=== PATIENT | male | born 1955 | race Caucasian/White ===

== ENCOUNTER 2017-11-05 16:35 | Inpatient (IN) | payer MEDICARE ==
[~2017-11-05] VITALS: Ht 180.3 cm; Wt 88.9 kg
[2017-11-05 16:45] VITALS: BP 120/80; PULSE 94; RESP 18; TEMP 98.5; O2SAT 99
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
[2017-11-05 20:18] VITALS: BP 118/65; PULSE 93; RESP 18; O2SAT 98
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
[2017-11-05] MEDS ORDERED: ONDANSETRON HCL 4 MG/2 ML VIAL IV PUSH ONE (20:30)
[2017-11-05] MEDS ORDERED: MORPHINE SULFATE 4 MG/ML INJ IV PUSH ONE (20:30)
[2017-11-05 21:28] LABS: BASOPHIL % 0.1 % (0.0-2.0); HEMATOCRIT 37.5 % (39.0-51.0); HEMOGLOBIN 12.9 GM/DL (13.0-17.0); LYMPH % 7.9 % (9.0-44.0); LYMPHOCYTE # 0.9 TH/MM3 (1.0-4.8); MEAN CELL VOLUME 92.6 FL (80.0-100.0); MEAN CORPUSCULAR HEMOGLOBIN 31.9 PG (27.0-34.0); MEAN CORPUSCULAR HGB CONC 34.5 % (32.0-36.0); MEAN PLATELET VOLUME 7.8 FL (7.0-11.0); MONOCYTE # 0.6 TH/MM3 (0-0.9); PLATELET COUNT 198 TH/MM3 (150-450); RED BLOOD COUNT 4.04 MIL/MM3 (4.50-5.90); RED CELL DISTRIBUTION WIDTH 13.1 % (11.6-17.2); WHITE BLOOD COUNT 11.5 TH/MM3 (4.0-11.0)
[2017-11-05 21:40] LABS: INTERNATIONAL NORMALIZED RATIO 1.1 RATIO; PROTHROMBIN TIME - PATIENT 10.7 SEC (9.8-11.6)
[2017-11-05 21:44] LABS: BICARBONATE 25.9 MEQ/L (21.0-32.0); CALCIUM 9.3 MG/DL (8.5-10.1); CREATININE 0.82 MG/DL (0.60-1.30)
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
[2017-11-05] MEDS ORDERED: LACTULOSE SYRUP 20 GM/30 ML CUP PO PRN (22:45)
[2017-11-05] MEDS ORDERED: SODIUM CHLORIDE 0.9% FLUSH 10 ML FLUSH IV FLUSH PRN (22:45)
[2017-11-05] MEDS ORDERED: SENNOSIDES 8.6 MG TAB PO PRN (22:45)
[2017-11-05] MEDS ORDERED: MAGNESIUM HYDROXIDE SUSP 30 ML CUP PO PRN (22:45)
[2017-11-05] MEDS ORDERED: ACETAMINOPHEN 325 MG TAB PO PRN (22:45)
[2017-11-05] MEDS ORDERED: BISACODYL 10 MG SUPP RECTAL PRN (22:45)
[2017-11-05] MEDS ORDERED: ONDANSETRON HCL 4 MG/2 ML VIAL IVP PRN (22:45)
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
[2017-11-06] VITALS (8 sets, daily range): BP systolic 130–156; BP diastolic 63–80; PULSE 75–100; RESP 16–21; TEMP 96.6–99; O2SAT 96–100
[2017-11-06] MEDS: SODIUM CHLOR 0.9% 1000 ML INJ 1,000 ML IV SCH ×3 (00:31→11:50)
[2017-11-06] MEDS: MORPHINE SULFATE 2 MG/ML INJ IV PUSH PRN ×4 (00:32→10:54)
[2017-11-06] MEDS ORDERED: CHLORHEXIDINE GLUCONATE 2 % 1 PACK (2 CLOTHS) TOPICAL PRN (01:45)
[2017-11-06] MEDS ORDERED: SODIUM CHLORID 0.9% 500 ML IV PRN (01:45)
[2017-11-06] MEDS ORDERED: POVIDONE IODINE 5% (ANTISEPSIS KIT) 4 APPLICATIONS EACH NARE PRN (01:45)
[2017-11-06] MEDS: LACTATED RINGER'S 1000 ML IV PRN ×2 (04:58→14:09)
[2017-11-06 07:35] LABS: AUTOMATED NEUTROPHIL # 7.2 TH/MM3 (1.8-7.7); BASOPHIL % 0.2 % (0.0-2.0); HEMATOCRIT 34.5 % (39.0-51.0); HEMOGLOBIN 12.2 GM/DL (13.0-17.0); LYMPH % 13.4 % (9.0-44.0); LYMPHOCYTE # 1.2 TH/MM3 (1.0-4.8); MEAN CELL VOLUME 92.3 FL (80.0-100.0); MEAN CORPUSCULAR HEMOGLOBIN 32.6 PG (27.0-34.0); MEAN CORPUSCULAR HGB CONC 35.3 % (32.0-36.0); MEAN PLATELET VOLUME 7.4 FL (7.0-11.0); MONOCYTE # 0.8 TH/MM3 (0-0.9); NEUT % 77.4 % (16.0-70.0); PLATELET COUNT 163 TH/MM3 (150-450); RED BLOOD COUNT 3.73 MIL/MM3 (4.50-5.90); RED CELL DISTRIBUTION WIDTH 13.2 % (11.6-17.2); WHITE BLOOD COUNT 9.3 TH/MM3 (4.0-11.0)
[2017-11-06] MEDS: DOCUSATE SODIUM 50 MG/SENNA 8.6 MG TAB PO SCH ×2 (08:02→22:18)
[2017-11-06 08:05] LABS: ALBUMIN 3.5 GM/DL (3.4-5.0); ALT (GPT) 20 U/L (12-78); AST (GOT) 15 U/L (15-37); BICARBONATE 27.8 MEQ/L (21.0-32.0); BLOOD UREA NITROGEN 19 MG/DL (7-18); CALCIUM 8.7 MG/DL (8.5-10.1); CHLORIDE 107 MEQ/L (98-107); CREATININE 0.86 MG/DL (0.60-1.30); GLOMERULAR FILTRATION RATE 90 ML/MIN (>89); GLUCOSE,RANDOM 135 MG/DL (74-106); SODIUM (NA) 141 MEQ/L (136-145)
[2017-11-06 08:07] LABS: ALKALINE PHOSPHATASE 72 U/L (45-117); TOTAL BILIRUBIN ADULT 1.9 MG/DL (0.2-1.0); TOTAL PROTEIN 6.7 GM/DL (6.4-8.2)
[2017-11-06] MEDS ORDERED: SODIUM CHLORIDE 0.9% FLUSH 10 ML FLUSH IV FLUSH SCH (09:00)
--- NOTE | 2017-11-06 10:04 | EKG ---
Date Performed: 11/06/2017 Time Performed: 03:55:57 PTAGE: 61 years EKG: Sinus rhythm NORMAL ECG NO PREVIOUS TRACING DOCTOR: Jesus Gandara Interpretating Date/Time 11/06/2017 10:02:17
[2017-11-06] MEDS: ACETAMINOPHEN/HYDROcodone 325 MG/5 MG TAB PO PRN ×2 (11:55→18:42)
[2017-11-06] MEDS ORDERED: ONDANSETRON HCL 4 MG/2 ML VIAL IV ONE (12:00)
[2017-11-06] MEDS ORDERED: DEXAMETHASONE SOD PHOS 4 MG/ML VIAL IV ONE (12:00)
[2017-11-06] MEDS ORDERED: METOPROLOL TARTRATE 5 MG/5 ML VIAL IV ONE (12:00)
[2017-11-06] MEDS ORDERED: ceFAZolin INJ 1,000 MG VIAL IV ONE ×2 (12:00→15:09)
[2017-11-06] MEDS ORDERED: LIDOCAINE HCL 1% PF 5 ML SYRINGE OTHER ONE (12:00)
[2017-11-06] MEDS ORDERED: PROPOFOL 200 MG/20 ML AMP IV ONE (12:00)
[2017-11-06] MEDS ORDERED: PHENYLEPH/NS 1000 MCG/10 ML SYR IV ONE (12:00)
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
[2017-11-06] MEDS ORDERED: *morphine SULFATE 4 MG/ML PERIprocedure ONLY ONE (16:11)
[2017-11-06] MEDS ORDERED: DO NOT ADM ANY ANTICOAGULANT DRUGS PRN (16:15)
[2017-11-06] MEDS ORDERED: Post-op Orders (for Pharmacy) XX ONE (16:30)
[2017-11-06] MEDS ORDERED: SODIUM CHLORIDE 0.9% FLUSH 10 ML FLUSH IV FLUSH PRN (16:30)
--- NOTE | 2017-11-06 17:00 | RADRPT ---
EXAM DATE/TIME: 11/06/2017 14:21 [facility] COMPARISON: No previous studies available for comparison. INDICATIONS : External fixator application in operating room. MEDICAL HISTORY : None. SURGICAL HISTORY : None. ENCOUNTER: Subsequent ACUITY: 2 days PAIN SCORE: Non-responsive. LOCATION: Left lateral FINDINGS: External fixator placed across comminuted proximal tibial fracture. Also proximal fibular fracture. L ateral tibial plateau remains mildly depressed. CONCLUSION: 1. External fixation as above. Nadeem Cortes MD on November 06, 2017 at 16:58 Board Certified Radiologist. This report was verified electronically.
[2017-11-06] MEDS: SODIUM CHLORIDE 0.9% FLUSH 10 ML FLUSH IV FLUSH SCH (21:00)
[2017-11-07] VITALS: BP 128/70; PULSE 83; RESP 20; TEMP 97.1; O2SAT 100
[2017-11-07] MEDS: ACETAMINOPHEN/HYDROcodone 325 MG/5 MG TAB PO PRN ×4 (02:37→17:33)
[2017-11-07 04:00] VITALS: BP 135/75; PULSE 85; RESP 20; TEMP 99.4; O2SAT 100
[2017-11-07] MEDS: ENOXAPARIN SODIUM 40 MG/0.4 ML SYRINGE SQ SCH (04:11)
[2017-11-07] MEDS: SODIUM CHLOR 0.9% 1000 ML INJ 1,000 ML IV SCH (04:31)
--- NOTE | 2017-11-07 07:03 | PD.ORT.PN ---
Subjective Subjective Remarks Patient resting comfortable this morning. He states his pain is well- controlled. Has no numbness or tingling. Objective Vitals Vital Signs Date Time Temp Pulse Resp B/P (MAP) Pulse Ox O2 Delivery O2 Flow Rate FiO2 11/07/17 04:00 99.4 85 20 135/75 (95) 100 11/07/17 00:00 97.1 83 20 128/70 (89) 100 11/06/17 22:11 99 11/06/17 20:00 98.5 85 18 141/72 (95) 100 11/06/17 17:37 Nasal Cannula 3.00 11/06/17 17:25 Nasal Cannula 3.00 11/06/17 17:05 99.0 75 16 152/80 (104) 98 11/06/17 16:24 98.6 87 15 150/84 (106) 95 Nasal Cannula 3 11/06/17 16:15 85 15 150/79 (102) 95 Nasal Cannula 3 11/06/17 16:00 85 15 149/72 (97) 100 Nasal Cannula 3 11/06/17 15:39 98.2 114 15 160/82 (108) 100 Nasal Cannula 3 11/06/17 12:00 98.8 77 18 156/78 (104) 100 11/06/17 08:00 99.0 81 18 140/75 (96) 98 I/O 11/06/17 11/06/17 11/06/17 11/07/17 11/07/17 11/07/17 07:00 15:00 23:00 07:00 15:00 23:00 Intake Total 320 ml 699 ml 900 ml 1096 ml Output Total 0 ml 5 ml Balance 320 ml 699 ml 895 ml 1096 ml Intake Oral 0 ml IV Total 320 ml 699 ml 100 ml 1096 ml Other 800 ml Output Urine Total 0 ml 0 ml Estimated Blood Loss 5 ml # Voids 3 # Bowel Movements 0 Result Diagram: 11/06/17 0657 11/06/1757 Objective Remarks Awake, alert, no acute distress Left lower extremity: External fixator in place with clean dressings. Positive dorsiflexion, plantar flexion, EHL, FHL. Sensation intact. Patient allows full passive range of motion of ankle and foot without any discomfort. Significant edema and swelling about the proximal small tibia and knee. Palpable DP Assessment & Plan Assessment and Plan 61-year-old gentleman with closed left bicondylar tibial plateau fracture, POD# 1 s/p application of external fixator 1. Nonweightbearing left lower extremity in ex fix. Strict elevation and ice to left lower extremity. 2. Plan for definitive fixation in a delayed basis when the soft tissue swelling improves. This will likely be performed by my partner, Dr. Zheng 3. Lovenox for DVT prophylaxis Deyanira Heredia MD Nov 07, 2017 07:03
[2017-11-07 08:03] VITALS: BP 139/70; PULSE 87; RESP 18; TEMP 96.3; O2SAT 100
[2017-11-07] MEDS: DOCUSATE SODIUM 50 MG/SENNA 8.6 MG TAB PO SCH ×2 (08:34→21:16)
[2017-11-07] MEDS: SODIUM CHLORIDE 0.9% FLUSH 10 ML FLUSH IV FLUSH SCH ×2 (09:00→21:16)
[2017-11-07 12:00] VITALS: BP 125/70; PULSE 89; RESP 18; TEMP 97.9; O2SAT 98
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
[2017-11-07 16:00] VITALS: BP 120/67; PULSE 88; RESP 18; TEMP 98.8; O2SAT 99
[2017-11-07 20:00] VITALS: BP 134/66; PULSE 93; RESP 18; TEMP 100.3; O2SAT 95
[2017-11-08 00:08] VITALS: BP 139/71; PULSE 95; RESP 17; TEMP 99.3; O2SAT 95
[2017-11-08] MEDS: SODIUM CHLOR 0.9% 1000 ML INJ 1,000 ML IV SCH ×4 (01:00→21:00)
[2017-11-08] MEDS: MORPHINE SULFATE 2 MG/ML INJ IV PUSH PRN (02:45)
[2017-11-08] MEDS: ACETAMINOPHEN/HYDROcodone 325 MG/5 MG TAB PO PRN ×6 (02:46→22:04)
[2017-11-08] MEDS: ENOXAPARIN SODIUM 40 MG/0.4 ML SYRINGE SQ SCH (03:15)
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
[2017-11-08 07:58] VITALS: BP 137/80; PULSE 95; RESP 18; TEMP 97.6; O2SAT 99
[2017-11-08] MEDS: DOCUSATE SODIUM 50 MG/SENNA 8.6 MG TAB PO SCH ×2 (08:49→22:03)
[2017-11-08] MEDS: SODIUM CHLORIDE 0.9% FLUSH 10 ML FLUSH IV FLUSH SCH ×2 (08:49→22:04)
[2017-11-08 11:44] VITALS: BP 132/69; PULSE 83; RESP 18; TEMP 98.4; O2SAT 100
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
[2017-11-08 12:47] LABS: AUTOMATED NEUTROPHIL # 4.6 TH/MM3 (1.8-7.7); BASOPHIL % 0.4 % (0.0-2.0); EOSINOPHIL # 0.2 TH/MM3 (0-0.4); EOSINOPHIL % 3.3 % (0.0-4.0); HEMATOCRIT 32.2 % (39.0-51.0); HEMOGLOBIN 11.6 GM/DL (13.0-17.0); LYMPH % 22.9 % (9.0-44.0); LYMPHOCYTE # 1.7 TH/MM3 (1.0-4.8); MEAN CELL VOLUME 93.8 FL (80.0-100.0); MEAN CORPUSCULAR HEMOGLOBIN 33.8 PG (27.0-34.0); MEAN PLATELET VOLUME 7.5 FL (7.0-11.0); MONO % 10.5 % (0.0-8.0); MONOCYTE # 0.8 TH/MM3 (0-0.9); NEUT % 62.9 % (16.0-70.0); PLATELET COUNT 133 TH/MM3 (150-450); RED BLOOD COUNT 3.43 MIL/MM3 (4.50-5.90); RED CELL DISTRIBUTION WIDTH 12.9 % (11.6-17.2); WHITE BLOOD COUNT 7.3 TH/MM3 (4.0-11.0)
[2017-11-08 16:00] VITALS: BP 131/72; PULSE 85; RESP 18; TEMP 98.1; O2SAT 98
[2017-11-08 21:33] VITALS: BP 152/80; PULSE 97; RESP 17; TEMP 98.6; O2SAT 97
[2017-11-08 23:55] VITALS: BP 146/78; PULSE 99; RESP 18; TEMP 98.2; O2SAT 97
[2017-11-09] MEDS: MORPHINE SULFATE 2 MG/ML INJ IV PUSH PRN (05:28)
--- NOTE | 2017-11-09 06:38 | PD.ORT.PN ---
Subjective Subjective Remarks s/p exfix left tibial plateau doing well. no changes. reports pain controlled and has been elevating Objective Vitals Vital Signs Date Time Temp Pulse Resp B/P (MAP) Pulse Ox O2 Delivery O2 Flow Rate FiO2 11/08/17 23:55 98.2 99 18 146/78 (100) 97 11/08/17 21:33 98.6 97 17 152/80 (104) 97 11/08/17 16:00 98.1 85 18 131/72 (91) 98 11/08/17 11:44 98.4 83 18 132/69 (90) 100 11/08/17 07:58 97.6 95 18 137/80 (99) 99 I/O 11/08/17 11/08/17 11/08/17 11/09/17 11/09/17 11/09/17 07:00 15:00 23:00 07:00 15:00 23:00 Intake Total 380 ml 720 ml 360 ml Output Total 500 ml Balance -120 ml 720 ml 360 ml Intake Oral 380 ml 720 ml 360 ml Output Urine Total 500 ml # Voids 3 2 # Bowel Movements 0 0 Result Diagram: 11/08/17 1220 11/06/17 0657 Objective Remarks Awake, alert, no acute distress Left lower extremity: External fixator in place with clean dressings. Positive dorsiflexion, plantar flexion, EHL, FHL. Sensation intact. Patient allows full passive range of motion of ankle and foot without any discomfort. Significant edema 3+ and swelling about the proximal small tibia and knee. Palpable DP Assessment & Plan Assessment and Plan 1) left bicondylar tibial plateau fracture, s/p application of external fixator -NWB -elevate -ice -too swollen for surgery today -resume diet -npo after MN -1x dose of lovenox this AM -Toradol 15mg Q6H x 4 doses -plan for surgery again tomorrow Kishore Regalado/First Mary GARZA Nov 09, 2017 06:38
[2017-11-09] MEDS: KETOROLAC TROMETHAMINE 30 MG/ML (IVP) VIAL IV PUSH SCH ×4 (06:45→23:43)
[2017-11-09] MEDS ORDERED: ENOXAPARIN SODIUM 30 MG/0.3 ML SYRINGE SQ ONE (06:45)
[2017-11-09] MEDS: SODIUM CHLOR 0.9% 1000 ML INJ 1,000 ML IV SCH ×2 (07:00→17:00)
[2017-11-09 07:39] LABS: AUTOMATED NEUTROPHIL # 5.5 TH/MM3 (1.8-7.7); BASOPHIL % 0.4 % (0.0-2.0); EOSINOPHIL # 0.2 TH/MM3 (0-0.4); EOSINOPHIL % 2.6 % (0.0-4.0); HEMATOCRIT 35.3 % (39.0-51.0); HEMOGLOBIN 12.4 GM/DL (13.0-17.0); LYMPH % 18.4 % (9.0-44.0); LYMPHOCYTE # 1.4 TH/MM3 (1.0-4.8); MEAN CELL VOLUME 93.4 FL (80.0-100.0); MEAN CORPUSCULAR HEMOGLOBIN 32.7 PG (27.0-34.0); MEAN PLATELET VOLUME 7.6 FL (7.0-11.0); MONO % 7.7 % (0.0-8.0); MONOCYTE # 0.6 TH/MM3 (0-0.9); NEUT % 70.9 % (16.0-70.0); PLATELET COUNT 154 TH/MM3 (150-450); RED BLOOD COUNT 3.78 MIL/MM3 (4.50-5.90); WHITE BLOOD COUNT 7.7 TH/MM3 (4.0-11.0)
[2017-11-09 08:00] VITALS: BP 144/79; PULSE 93; RESP 18; TEMP 99.2; O2SAT 99
[2017-11-09] MEDS: SODIUM CHLORIDE 0.9% FLUSH 10 ML FLUSH IV FLUSH SCH ×2 (09:00→22:28)
[2017-11-09] MEDS: DOCUSATE SODIUM 50 MG/SENNA 8.6 MG TAB PO SCH ×2 (09:19→22:28)
[2017-11-09] MEDS: ACETAMINOPHEN/HYDROcodone 325 MG/5 MG TAB PO PRN ×3 (09:19→18:13)
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
[2017-11-09 12:00] VITALS: BP 125/77; PULSE 90; RESP 18; TEMP 97.6; O2SAT 98
[2017-11-09 16:00] VITALS: BP 124/72; PULSE 96; RESP 18; TEMP 98; O2SAT 96
[2017-11-09 20:55] VITALS: BP 124/67; PULSE 80; RESP 17; TEMP 98.8; O2SAT 97
[2017-11-10 00:30] VITALS: BP 142/81; PULSE 78; RESP 18; TEMP 98.7; O2SAT 97
[2017-11-10] MEDS: SODIUM CHLOR 0.9% 1000 ML INJ 1,000 ML IV SCH ×3 (03:00→22:49)
[2017-11-10] MEDS ORDERED: LACTATED RINGER'S 1000 ML IV PRN (03:00)
[2017-11-10] MEDS ORDERED: POVIDONE IODINE 5% (ANTISEPSIS KIT) 4 APPLICATIONS EACH NARE PRN (03:00)
[2017-11-10] MEDS ORDERED: CHLORHEXIDINE GLUCONATE 2 % 1 PACK (2 CLOTHS) TOPICAL PRN (03:00)
[2017-11-10] MEDS ORDERED: METOPROLOL TARTRATE 25 MG TAB PO PRN (03:00)
[2017-11-10] MEDS ORDERED: SODIUM CHLORID 0.9% 500 ML IV PRN (03:00)
[2017-11-10 03:45] VITALS: BP_SYST 124; BP_SYST 128; BP_DIAS 56; BP_DIAS 76; PULSE 79; PULSE 88; RESP 17; TEMP 97; O2SAT 94; O2SAT 99
[2017-11-10] MEDS: LACTATED RINGER'S 1000 ML IV PRN (05:25)
[2017-11-10] MEDS: ACETAMINOPHEN/HYDROcodone 325 MG/5 MG TAB PO PRN (05:39)
--- NOTE | 2017-11-10 06:30 | PD.ORT.PN ---
Subjective Subjective Remarks s/p exfix left tibial plateau doing well. no changes. reports pain controlled and has been elevating Objective Vitals Vital Signs Date Time Temp Pulse Resp B/P (MAP) Pulse Ox O2 Delivery O2 Flow Rate FiO2 11/10/17 00:44 18 11/10/17 00:30 98.7 78 18 142/81 (101) 97 11/09/17 23:26 Room Air 11/09/17 20:55 98.8 80 17 124/67 (86) 97 11/09/17 19:32 18 11/09/17 16:00 98.0 96 18 124/72 (89) 96 11/09/17 12:00 97.6 90 18 125/77 (93) 98 11/09/17 08:00 99.2 93 18 144/79 (100) 99 I/O 11/09/17 11/09/17 11/09/17 11/10/17 11/10/17 11/10/17 07:00 15:00 23:00 07:00 15:00 23:00 Intake Total 0 ml 960 ml Balance 0 ml 960 ml Intake Oral 0 ml 960 ml # Voids 2 2 # Bowel Movements 0 1 Result Diagram: 11/09/17 0536 11/06/17 0657 Objective Remarks Awake, alert, no acute distress Left lower extremity: External fixator in place with clean dressings. Positive dorsiflexion, plantar flexion, EHL, FHL. Sensation intact. Patient allows full passive range of motion of ankle and foot without any discomfort. Significant edema 3+ and swelling about the proximal small tibia and knee. Palpable DP Assessment & Plan Assessment and Plan 1) left bicondylar tibial plateau fracture, s/p application of external fixator -NWB -elevate -ice -surgery today with Kishore Bourgeois/First Mary GARZA Nov 10, 2017 06:30
[2017-11-10 08:00] VITALS: BP 138/75; PULSE 83; RESP 18; TEMP 97.3; O2SAT 97
[2017-11-10] MEDS: DOCUSATE SODIUM 50 MG/SENNA 8.6 MG TAB PO SCH ×2 (08:36→20:34)
[2017-11-10] MEDS: SODIUM CHLORIDE 0.9% FLUSH 10 ML FLUSH IV FLUSH SCH ×2 (08:36→20:33)
[2017-11-10] MEDS ORDERED: ACETAMINOPHEN 1000 MG/100 ML 100 ML IV ONE (10:07)
[2017-11-10] MEDS ORDERED: VANCOMYCIN HCL 1000 MG VIAL ONE (10:38)
[2017-11-10] MEDS ORDERED: ceFAZolin 2 GM PREMIX 50 ML ONE (10:38)
[2017-11-10] MEDS ORDERED: HYDR-3583 PO (10:39)
[2017-11-10] MEDS ORDERED: VITA500012 PO (10:39)
[2017-11-10] MEDS ORDERED: VITA2000 PO (10:39)
[2017-11-10] MEDS ORDERED: XARE10TA PO (10:39)
[2017-11-10] MEDS ORDERED: CALCTAB19 PO (10:39)
[2017-11-10] MEDS ORDERED: GENTAMICIN SULFATE 80 MG/2 ML VIAL ONE (11:11)
[2017-11-10] MEDS ORDERED: PHENYLEPH/NS 1000 MCG/10 ML SYR IV ONE (12:00)
[2017-11-10] MEDS ORDERED: ONDANSETRON HCL 4 MG/2 ML VIAL IV ONE (12:00)
[2017-11-10] MEDS ORDERED: SODIUM CHLOR 0.9% 250 ML INJ 250 ML IV ONE (12:00)
[2017-11-10] MEDS ORDERED: KETOROLAC TROMETHAMINE 30 MG/ML (IVP) VIAL IV PUSH ONE (12:00)
[2017-11-10] MEDS ORDERED: LIDOCAINE HCL 1% PF 5 ML SYRINGE OTHER ONE (12:00)
[2017-11-10] MEDS ORDERED: DEXAMETHASONE SOD PHOS 4 MG/ML VIAL IV ONE (12:00)
[2017-11-10] MEDS ORDERED: PROPOFOL 200 MG/20 ML AMP IV ONE (12:00)
[2017-11-10] MEDS ORDERED: Post-op Orders (for Pharmacy) XX ONE (12:30)
[2017-11-10] MEDS ORDERED: MORPHINE SULFATE 4 MG/ML INJ IV PUSH PRN (12:30)
--- NOTE | 2017-11-10 12:33 | PD.OP ---
cc: Marcelino Hurtado MD Operative Report Date of Surgery: Nov 10, 2017 Preoperative Diagnosis: Comminuted left bicondylar tibial plateau fracture Postoperative Diagnosis: Procedure: Removal of external fixation, open reduction internal fixation bicondylar left tibial plateau Anesthesia: Gen. Surgeon: Marcelino Hurtado Herbarium Worker(s): ONELIA Espinosa PA-C The surgical procedure was assisted by my physician visitor information assistant. My P.A. presence was necessary throughout this case for the manipulation and positioning of the surgical extremity. My P.A. was assisting me throughout the duration of this procedure. The skill set of a physician visitor information assistant was medically necessary to complete this procedure. During the surgical case the information technology audit manager was working at the back table and the physician visitor information assistant was directly assisting me. Operation and Findings: Implants used: Biomet Plan of activity: Nonweightbearing left leg 3 months This patient was seen and evaluated preoperatively. Patient sustained an injury resulting a bicondylar left tibial plateau fracture. Patient was initially treated with closed reduction and external fixation. Patient was seen and evaluated preoperatively. Soft tissue swelling had improved significantly and appeared to be ready for surgery. Informed consent was obtained preoperatively after detailed discussion of the risks and benefits of surgery. Risk of surgery including bleeding, infection, nonunion, painful hardware, stiffness, loss of motion, arthritis, need for knee replacement, as well as medical complications including blood clots, stroke, heart attack, and were discussed. I also discussed the possibility of using allograft bone graft . Preoperatively the operative site was marked. Patient was brought to the operating room and placed on the operating room table. Intravenous sedation and general endotracheal anesthesia were administered. IV antibiotics were given and a time out procedure was preformed. Procedure began with removal of external fixation. Clamps were loosened. Clamps and bars were now removed from the pins. The pins were left in place at this time. The operative leg was prepped with alcohol followed by Hibiclens and draped in the usual sterile fashion. Procedure began with a 4-inch curvilinear incision over the anterolateral knee. Subcutaneous tissue was treated with Bovie. Iliotibial band was split in line with fibers. A sub-meniscal arthrotomy was created and the lateral articular surface was visualized. There was significant comminution and depression of the articular surface. The lateral meniscus appeared to be intact. A window was made in the metaphyseal region and bone tamps used to elevate the articular surface. Articular surface reduced into excellent alignment. The medial plateau was manipulated to achieve excellent reduction. K-wires were used for provisional fixation. At this point 45 cc of cancellous bone graft was packed under the lateral articular surface using a bone tamp. The cortical fragments were now reduced. Fluoroscopy revealed excellent alignment of fracture. A Biomet proximal tibial plate was selected. The plate was provisionally held with K-wires. 3.5 cortical screws were used compress plate to bone distally, and a periarticular clamp was used to compress the medial and lateral tibial plateau fracture fragments together. Multiple locking screws were now placed proximally. Additional screws were placed in the shaft. K-wires were removed. Final fluoroscopy showed excellent alignment of fracture with well- placed hardware. The incision was thoroughly irrigated. Arthrotomy and iliotibial band closed with #1 Vicryl,. Subcutaneous tissues closed with 3-0 Vicryl and skin was closed with quyen. Sterile dressings were applied. The external fixator pins were now removed. The patient was transferred to recovery in stable condition. Marcelino Hurtado MD Nov 10, 2017 12:33
--- NOTE | 2017-11-10 12:41 | RADRPT ---
EXAM DATE/TIME: 11/10/2017 12:13 [facility] COMPARISON: KNEE LEFT LTD (1 OR 2VWS), November 06, 2017, 14:21. INDICATIONS : Post-op ORIF Left tibia fracture. MEDICAL HISTORY : None. SURGICAL HISTORY : None. ENCOUNTER: Subsequent ACUITY: 4 - 6 days PAIN SCORE: Non-responsive. LOCATION: Left knee. CONCLUSION: Fluoroscopic images during placement of plate and screws along the proximal tibia fixating fracture w hich is near anatomic.. Lewis Pepe MD on November 10, 2017 at 12:39 Board Certified Radiologist. This report was verified electronically.
[2017-11-10] MEDS ORDERED: MIDAZOLAM HCL 2 MG/2 ML VIAL ONE (12:57)
[2017-11-10] MEDS ORDERED: *morphine SULFATE 4 MG/ML PERIprocedure ONLY ONE ×2 (13:00→13:23)
[2017-11-10] MEDS: LACTATED RINGER'S 1000 ML INJ 1,000 ML IV SCH ×2 (13:13→20:33)
[2017-11-10] MEDS ORDERED: DO NOT ADM ANY ANTICOAGULANT DRUGS PRN (13:15)
[2017-11-10] MEDS ORDERED: *ONDANSETRON 4 MG VIAL PERIprocedural Use ONLY ONE (13:23)
[2017-11-10] MEDS ORDERED: ERGOCALCIFEROL (VIT D2) 50,000 UNIT CAP PO SCH (14:00)
[2017-11-10] MEDS: KETOROLAC TROMETHAMINE 30 MG/ML (IVP) VIAL IVP SCH ×2 (14:23→20:34)
[2017-11-10 14:38] VITALS: BP 149/95; PULSE 96; RESP 18; TEMP 96.4; O2SAT 100
[2017-11-10] MEDS: ACETAMINOPHEN/HYDROcodone 325 MG/10 MG TAB PO PRN ×2 (15:43→20:35)
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
[2017-11-10] MEDS: ceFAZolin 2 GM PREMIX 50 ML IV SCH (18:13)
[2017-11-10 20:00] VITALS: BP 130/65; PULSE 97; RESP 15; TEMP 98; O2SAT 99
[2017-11-10] MEDS: VANCOMYCIN INJ 1,000 MG in SODIUM CHLOR 0.9% 250 ML INJ 250 ML IV SCH (22:38)
[2017-11-11] VITALS: BP 125/59; PULSE 86; RESP 18; TEMP 98.8; O2SAT 98
[2017-11-11] MEDS: ceFAZolin 2 GM PREMIX 50 ML IV SCH ×3 (02:29→17:44)
[2017-11-11] MEDS: KETOROLAC TROMETHAMINE 30 MG/ML (IVP) VIAL IVP SCH ×4 (02:29→20:10)
[2017-11-11 04:00] VITALS: BP 138/65; PULSE 85; RESP 18; TEMP 97; O2SAT 97
[2017-11-11 05:23] LABS: HEMOGLOBIN 9.9 GM/DL (13.0-17.0)
--- NOTE | 2017-11-11 06:48 | PD.ORT.PN ---
Subjective Subjective Remarks Resting comfortably with no new complaints. continues to keep his leg elevated and iced Objective Vitals Vital Signs Date Time Temp Pulse Resp B/P (MAP) Pulse Ox O2 Delivery O2 Flow Rate FiO2 11/11/17 04:00 97.0 85 18 138/65 (89) 97 11/11/17 03:51 18 11/11/17 00:00 98.8 86 18 125/59 (81) 98 11/10/17 23:08 Nasal Cannula 2.00 11/10/17 21:09 18 11/10/17 20:00 98.0 97 15 130/65 (86) 99 11/10/17 18:31 18 11/10/17 14:38 96.4 96 18 149/95 (113) 100 11/10/17 13:45 98.2 88 12 148/85 (106) 100 Nasal Cannula 2 11/10/17 13:30 80 15 150/80 (103) 100 Nasal Cannula 2 11/10/17 13:15 90 13 149/84 (105) 100 Nasal Cannula 2 11/10/17 13:00 95 13 155/90 (111) 98 Nasal Cannula 2 11/10/17 12:53 98.8 107 15 158/83 (108) 100 Nasal Cannula 2 11/10/17 08:00 97.3 83 18 138/75 (96) 97 11/10/17 06:58 18 I/O 11/10/17 11/10/17 11/10/17 11/11/17 11/11/17 11/11/17 07:00 15:00 23:00 07:00 15:00 23:00 Intake Total 1060 ml 1351 ml 660 ml Output Total 50 ml Balance 1060 ml 1301 ml 660 ml Intake Oral 960 ml 360 ml IV Total 100 ml 1351 ml 300 ml Estimated Blood Loss 50 ml # Voids 2 1 1 # Bowel Movements 0 0 0 Result Diagram: 11/11/17 0450 Objective Remarks Awake, alert, no acute distress Left lower extremity: Clean dry dressings intact. Knee immobilizer in place. Compartments semisoft. Intact sensation distally with intact dorsal flexion plantar flexion of foot. Intact distal pulses Assessment & Plan Assessment and Plan Left bicondylar tibial plateau fracture ORIF with removal of external fixator POD 1 -NWB -elevate -Begin daily dressing changes POD 2 with Xeroform 4 x 4's and Giancarlo wrap -Will plan on discharge to home on Tuesday Physical therapy for passive range of motion of knee with no active leglifts or quad sets Lovenox Incentive spirometry Follow-up Dr. Hurtado or [place] in 2 weeks Juan Luis Chau Jr. PA Nov 11, 2017 06:48
[2017-11-11 08:00] VITALS: BP 148/74; PULSE 98; RESP 16; TEMP 98.4; O2SAT 99
[2017-11-11] MEDS: DOCUSATE SODIUM 50 MG/SENNA 8.6 MG TAB PO SCH ×2 (08:15→20:10)
[2017-11-11] MEDS: CHOLECALCIFEROL (VIT D3) 1000 UNIT TAB PO SCH (08:15)
[2017-11-11] MEDS: ACETAMINOPHEN/HYDROcodone 325 MG/10 MG TAB PO PRN ×4 (08:18→22:48)
[2017-11-11] MEDS: SODIUM CHLOR 0.9% 1000 ML INJ 1,000 ML IV SCH ×3 (08:43→17:45)
[2017-11-11] MEDS: SODIUM CHLORIDE 0.9% FLUSH 10 ML FLUSH IV FLUSH SCH ×2 (08:43→20:14)
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
[2017-11-11] MEDS: VANCOMYCIN INJ 1,000 MG in SODIUM CHLOR 0.9% 250 ML INJ 250 ML IV SCH ×2 (11:29→22:48)
[2017-11-11] MEDS: LACTATED RINGER'S 1000 ML INJ 1,000 ML IV SCH (11:31)
[2017-11-11 12:00] VITALS: BP 144/74; PULSE 98; RESP 16; TEMP 98.1; O2SAT 99
[2017-11-11 16:00] VITALS: BP 129/75; PULSE 102; RESP 16; TEMP 98; O2SAT 98
[2017-11-11 20:11] VITALS: BP 152/90; PULSE 103; RESP 20; TEMP 97.2; O2SAT 98
[2017-11-12] VITALS: BP 131/74; PULSE 93; RESP 20; TEMP 98.5; O2SAT 98
[2017-11-12 04:00] VITALS: BP 148/74; PULSE 104; RESP 18; TEMP 99.7; O2SAT 98
[2017-11-12] MEDS: ceFAZolin 2 GM PREMIX 50 ML IV SCH (04:01)
[2017-11-12] MEDS: ENOXAPARIN SODIUM 40 MG/0.4 ML SYRINGE SQ SCH (04:01)
[2017-11-12] MEDS: KETOROLAC TROMETHAMINE 30 MG/ML (IVP) VIAL IVP SCH ×2 (04:02→09:00)
[2017-11-12] MEDS: LACTATED RINGER'S 1000 ML INJ 1,000 ML IV SCH ×2 (04:10→13:45)
[2017-11-12] MEDS: SODIUM CHLOR 0.9% 1000 ML INJ 1,000 ML IV SCH (04:11)
[2017-11-12 08:00] VITALS: BP 145/77; PULSE 99; RESP 16; TEMP 99.3; O2SAT 97
[2017-11-12] MEDS: CHOLECALCIFEROL (VIT D3) 1000 UNIT TAB PO SCH (08:59)
[2017-11-12] MEDS: DOCUSATE SODIUM 50 MG/SENNA 8.6 MG TAB PO SCH (08:59)
[2017-11-12] MEDS: SODIUM CHLORIDE 0.9% FLUSH 10 ML FLUSH IV FLUSH SCH (09:00)
--- NOTE | 2017-11-12 09:39 | PD.ORT.PN ---
Subjective Subjective Remarks pt has no complaints, doing better, wants to be discharged home today lives in [facility] Objective Vitals Vital Signs Date Time Temp Pulse Resp B/P (MAP) Pulse Ox O2 Delivery O2 Flow Rate FiO2 11/12/17 04:00 99.7 104 18 148/74 (98) 98 11/12/17 00:00 98.5 93 20 131/74 (93) 98 11/11/17 20:11 97.2 103 20 152/90 (110) 98 11/11/17 17:42 18 11/11/17 16:00 98.0 102 16 129/75 (93) 98 11/11/17 15:00 18 11/11/17 12:00 98.1 98 16 144/74 (97) 99 I/O 11/11/17 11/11/17 11/11/17 11/12/17 11/12/17 11/12/17 07:00 15:00 23:00 07:00 15:00 23:00 Intake Total 660 ml 1180 ml 1540 ml Output Total 600 ml Balance 660 ml 1180 ml 940 ml Intake Oral 360 ml 1180 ml 240 ml IV Total 300 ml 1300 ml Output Urine Total 600 ml # Voids 1 4 # Bowel Movements 0 2 0 Result Diagram: 11/11/17 0450 Objective Remarks seen in room with also seen and examined by Dr. Eamon Malik eating breakfast, comfortable Awake, alert, no acute distress Left lower extremity: Clean dry dressings intact. Knee immobilizer in place. Compartments semisoft. Intact sensation distally with intact dorsal flexion plantar flexion of foot. Intact distal pulses Assessment & Plan Assessment and Plan Left bicondylar tibial plateau fracture ORIF with removal of external fixator POD #2 -NWB -elevate -Begin daily dressing changes today with Xeroform 4 x 4's and Giancarlo wrap -patient would like to go home today, discharge today - from [facility] Physical therapy for passive range of motion of knee with no active leglifts or quad sets Lovenox DVT prop Incentive spirometry Follow-up Dr. Hurtado or [place] in 2 weeks Jenni Leon Nov 12, 2017 09:39
[2017-11-12] MEDS ORDERED: WALKER WHEELS/F1 MIS (09:43)
[2017-11-12 12:00] VITALS: BP 145/71; PULSE 86; RESP 16; TEMP 98.9; O2SAT 100
[2017-11-12] MEDS ORDERED: WHEEMIS3 (15:10)
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
--- NOTE | 2017-11-12 15:25 | HHI.DCPOC ---
Discharge Care Plan Diagnosis: (1) Tibial plateau fracture, left Your Health Problems Are: Difficulty with ADL Exercise Tolerance Goals to Promote Your Health * To prevent worsening of your condition and complications * To maintain your health at the optimal level Directions to Meet Your Goals Take your medications as prescribed Follow your dietary instruction Follow activity as directed Keep your appointments as scheduled Take your immunizations and boosters as scheduled If your symptoms worsen call your PCP, if no PCP go to Urgent Care Center or Emergency Room Smoking is Dangerous to Your Health. Avoid second hand smoke Call the 24-hour hour crisis hotline for domestic abuse at Mark Weldon MD Nov 12, 2017 15:25
[2017-11-12 16:04] LABS: HEMATOCRIT 31.6 % (39.0-51.0); HEMOGLOBIN 10.8 GM/DL (13.0-17.0)
[2017-11-12 16:27] LABS: BICARBONATE 28.5 MEQ/L (21.0-32.0); BLOOD UREA NITROGEN 18 MG/DL (7-18); CALCIUM 8.6 MG/DL (8.5-10.1); CHLORIDE 104 MEQ/L (98-107); CREATININE 0.76 MG/DL (0.60-1.30); GLOMERULAR FILTRATION RATE 104 ML/MIN (>89); GLUCOSE,RANDOM 83 MG/DL (74-106); MAGNESIUM 2.1 MG/DL (1.5-2.5); SODIUM (NA) 140 MEQ/L (136-145)
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
[2017-11-13 10:15] LABS: HEMOGLOBIN A1C 5.9 % (4.3-6.0)
== END 2017-11-12 18:49 | disposition home health service (06) | DRG 493 ==
LOC: NEPD 16:35 → NEDA 22:43 → N06B 11-06 00:57
PROVIDERS: ADMIT Internal Medicine; ATTEND Internal Medicine
PROC: 0QSH05Z Reposition Left Tibia with External Fixation Device, Open Approach (ICD-10-PCS; principal; 2017-11-06 14:39)
PROC: 0QSH04Z Reposition Left Tibia with Internal Fixation Device, Open Approach (ICD-10-PCS; 2017-11-10)
PROC: 0QPHX5Z Removal of External Fixation Device from Left Tibia, External Approach (ICD-10-PCS; 2017-11-10)
DX: S82.142A Displaced bicondylar fracture of left tibia, initial encounter for closed fracture (principal); D62 Acute posthemorrhagic anemia; S82.832A Other fracture of upper and lower end of left fibula, initial encounter for closed fracture; E86.0 Dehydration; V28.4XXA Motorcycle driver injured in noncollision transport accident in traffic accident, initial encounter; Y93.89 Activity, other specified; Y92.410 Unspecified street and highway as the place of occurrence of the external cause; R73.03 Prediabetes
CPT/HCPCS: 73560; 73564; 73700; 76000; 80048; 80053; 82652; 83036; 83735; 85014; 85018; 85025; 85610; 85730; 93005; 94150; 96374; 96375; C1713; J0131; J0690; J1100; J1580; J1650; J1885; J2250; J2270; J2370; J2405; J3010; J3370; J7030; J7050; J7120; L1830